=== PATIENT | male | born 1995 | race Caucasian/White ===

== ENCOUNTER 2016-07-15 19:54 | Emergency (ER) | payer SELFPAY ==
[2016-07-15 23:25] VITALS: BP 165/89
== END 2016-07-15 23:25 | disposition home or self-care (01) ==
LOC: ED 19:54
DX: J18.9 Pneumonia, unspecified organism (principal); J98.01 Acute bronchospasm
CPT/HCPCS: J0696; J7512; J7613; J7644

== ENCOUNTER 2017-02-08 12:49 | Emergency (ER) | payer SELFPAY ==
[~2017-02-08] VITALS: Ht 180.3 cm; Wt 188.2 kg
[2017-02-08 12:54] VITALS: Ht 180.3 cm; Wt 188.2 kg
[2017-02-08 13:59] VITALS: BP 148/89
== END 2017-02-08 13:59 | disposition home or self-care (01) ==
LOC: ED 12:49
DX: L03.115 Cellulitis of right lower limb (principal)

== ENCOUNTER 2017-02-14 21:53 | Emergency (ER) | payer OTHER ==
[~2017-02-14] VITALS: Ht 180.3 cm; Wt 190.5 kg
[2017-02-14 22:08] VITALS: Ht 180.3 cm; Wt 190.5 kg
[2017-02-14 23:43] VITALS: BP 123/95
== END 2017-02-14 23:43 | disposition home or self-care (01) ==
LOC: ED 21:53
DX: I80.3 Phlebitis and thrombophlebitis of lower extremities, unspecified (principal)
CPT/HCPCS: J0690; Q0092